=== PATIENT | female | born 1945 ===

== ENCOUNTER 2016-10-17 07:36 | Day surgery (SDC) | payer MEDICARE, OTHER ==
[2016-10-12 11:57] VITALS: BMI 35.7
[~2016-10-17 07:36] MED LIST: LACTATED RINGERS 1,000 ML IV SCH
[2016-10-17] MEDS ORDERED: LIDOCAINE 1% 20 ML VIAL (10MG/ML) FOR IV START INTRADERMA ONE (08:24)
[2016-10-17 08:28] VITALS: RESP 16; TEMP 97.8
[2016-10-17] MEDS ORDERED: PROPOFOL 10 MG/ML 20 ML VIAL IV ONE (08:41)
--- NOTE | 2016-10-17 09:07 | P.PCN ---
Date of Procedure: 10/17/16 Procedure(s) Performed: BRIEF HISTORY: Patient is a 71-year-old pleasant female, scheduled for an elective colonoscopy as a part of evaluation of prior history of colon polyps. Last colonoscopy was in 2007 and was noted to have colon polyps as per the patient. PROCEDURE PERFORMED: Colonoscopy. PREOPERATIVE DIAGNOSIS: History of Colon polyps. IV sedation per Anesthesia. PROCEDURE: After informed consent was obtained, the patient, was brought into the endoscopy unit. IV conscious sedation was administered by Anesthesia under continuous monitoring. Digital rectal examination was normal. Initially the Olympus CF-160 flexible video colonoscope was then inserted in the rectum, gradually advanced into the cecum without any difficulty. Careful examination was performed as the scope was gradually being withdrawn. Ileocecal valve and the appendiceal orifice were visualized and appeared normal. Prep was excellent. Mucosa of the cecum, ascending colon, transverse colon, descending colon, sigmoid colon, and rectum appeared normal. Scattered sigmoid diverticulosis seen. Retroflexion was performed in the rectum and no lesions were seen. The patient tolerated the procedure well. IMPRESSION: Normal-appearing colon from rectum to cecum with no evidence of colorectal neoplasia.. Katter sigmoid diverticulosis. RECOMMENDATIONS: Findings of this examination were discussed with the patient as well as a family. She was advised to have a repeat surveillance colonoscopy in 5 years because of the prior history of colon polyps.
[2016-10-17 09:23] VITALS: BP 133/81; PULSE 61
== END 2016-10-17 09:59 | disposition home or self-care (01) ==
LOC: ORWHC2ENDO 07:36
PROVIDERS: ATTEND Internal Medicine Gastroenterology
DX: Z12.11 Encounter for screening for malignant neoplasm of colon (principal); K57.30 Diverticulosis of large intestine without perforation or abscess without bleeding; I10 Essential (primary) hypertension; E78.5 Hyperlipidemia, unspecified; Z86.010 Personal history of colon polyps; Z79.82 Long term (current) use of aspirin; Z79.1 Long term (current) use of non-steroidal anti-inflammatories (NSAID); Z79.899 Other long term (current) drug therapy
CPT/HCPCS: J2704; G0105; 45378; 99153